=== PATIENT | male | born 1995 | race Two or more races ===

== ENCOUNTER 2021-10-02 15:06 | Emergency (ER) | payer BC, OTHER ==
[2021-10-02] MEDS: Lidocaine 2% with EPINEPHrine 1:100,000 20 ML MDV INJECT ONE (15:15)
[2021-10-02] MEDS: Morphine 2 MG/ML SYRINGE IM ONE (15:15)
[2021-10-02] MEDS: Diphtheria,Pertussis(Acell),Tetanus Vaccine 0.5 ML Syringe IM ONE (16:55)
== END 2021-10-02 17:04 | disposition home or self-care (01) ==
LOC: LL.ED 15:06
DX: S01.01XA Laceration without foreign body of scalp, initial encounter (principal); Z23 Encounter for immunization; W22.09XA Striking against other stationary object, initial encounter
CPT/HCPCS: 12001; 90471; 90715; 96372; 99282; J2270